=== PATIENT | female | born 1985 | race Hispanic/Latino ===

== ENCOUNTER 2024-05-17 20:43 | Observation (INO) | payer SELFPAY ==
[~2024-05-17 20:43] MED LIST: Iopamidol-370 76% 500 ML MDV (1 ML CHARGE) ONE
[2024-05-17 21:53] LABS: #Basophils 0.03 10x3/uL (0.0-0.2); %Basophils 0.4 % (0.0-1.0); %Eosinophils 0.7 % (0.0-10.0); %Lymphocytes 16.2 % (21.0-51.0); %Monocytes 9.1 % (0.0-10.0); Hematocrit 30.4 % (36.0-47.0); Hemoglobin 9.9 g/dL (12.0-16.0); Mean Corpuscular HGB CONC 32.6 g/dL (32.0-36.0); Mean Corpuscular Hemoglobin 27.7 pg (27.0-31.0); Mean Corpuscular Volume 85.2 fL (78.0-98.0); Platelet Count 300 10x3/uL (130-400); RBC Distribution Width 14.2 % (11.5-14.5); Red Blood Cell (RBC) Count 3.57 mill/uL (4.20-5.40)
[2024-05-17 22:07] LABS: INR-International Normal Ratio 1.2; PTT 31.5 sec (22.9-36.1); Prothrombin Time 14.9 sec (12.0-14.7)
[2024-05-17 22:12] LABS: Troponin I Less than 0.010 ng/mL (< 0.028)
[2024-05-17 22:14] LABS: ALT (SGPT) 9 U/L (8-55); AST (SGOT) 16 U/L (5-34); Albumin 3.6 g/dL (3.5-5.0); Alkaline Phosphatase 54 U/L (40-110); Anion Gap 21 mmol/L (10-20); BUN (Urea Nitrogen) 6 mg/dL (7.0-18.7); Bilirubin, Total 0.4 mg/dL (0.2-1.2); Calc. Creatinine Clearance 0 mL/min (70-130); Calcium 8.8 mg/dL (7.8-10.44); Carbon Dioxide 16 mmol/L (22-29); Chloride 101 mmol/L (98-107); Estimated GFR 119; Globulin 3.9 g/dL (2.4-3.5); Glucose 53 mg/dL (70-105); Potassium 2.5 mmol/L (3.5-5.1); Protein, Total 7.5 g/dL (6.0-8.3); Sodium 135 mmol/L (136-145)
[2024-05-17] MEDS ORDERED: Dextrose 50% Abboject 50 ML SYRINGE ONE (22:16)
[2024-05-17 22:18] LABS: Bilirubin Negative (Negative); Blood, Urine 1+ (Negative); CAUTI Indications for Culture Pelvic or flank pain; Clarity Clear (Clear); Glucose, Urine (Dipstick) Normal (Negative); Ketone, Urine 10 mg/dL (Negative); Leukocyte 25 Leu/uL (Negative); Nitrite Negative (Negative); Protein, Urine (Dipstick) Negative (Neg-Trace); RBC/HPF 0-3 HPF (0-3); Specific Gravity, Urine 1.011 (1.002-1.036); Squamous Epithelial 0-3 HPF (0-3); Urobilinogen Normal mg/dL (Less than 2); WBC/HPF 0-3 HPF (0-3); pH, Urine 5.5 (5.0-9.0)
[2024-05-17 22:21] LABS: Bacteria/HPF 1+ HPF (None Seen)
[2024-05-17 22:22] LABS: Urine Culture Reflex No No
[2024-05-17 22:33] LABS: Magnesium 1.8 mg/dL (1.6-2.6)
[2024-05-17] MEDS ORDERED: Potassium Chloride 20 MEQ TAB ONE (22:48)
[2024-05-17] MEDS ORDERED: Cefepime 2 GM VIAL ONE (22:49)
[2024-05-17] MEDS ORDERED: Sodium Chloride 0.9% 100 ML ONE (22:49)
[2024-05-17] MEDS ORDERED: Potassium Chloride 20 MEQ (100 mL) BAG ONE (23:07)
[2024-05-17 23:22] LABS: Actual Bicarbonate (HCO3v) 19.4 mEq/L (22-28); Base Excess -4.5 mEq/L (-2.0 to +3.0); Calcium, Ionized (venous) 1.08 mmol/L (1.16-1.32); Chloride (VBG) 104 mmol/L (98-106); Hematocrit-VBG 34 % (36.0-47.0); Hemoglobin (Hb) 11.6 g/dL (11.7-15.5); Potassium (VBG) 2.76 mmol/L (3.70-5.30); Sodium 138 mmol/L (133-146)
[2024-05-17 23:51] LABS: BHCG - Serum Negative (NEGATIVE); Pregs Control Background? CLEAR/WHITE (CLR/WHITE); Pregs Control Bar Appear? YES (CONTROL BAR)
[2024-05-18 00:01] LABS: SARS-CoV-2 E Target Negative; SARS-CoV-2 N2 Target Negative; SARS-CoV-2 NAA Rapid Test Not Detected (NotDetected); SARS-CoV-2 RdRP gene Negative
[2024-05-18] MEDS ORDERED: Magnesium 2 GM/50 ML BAG (IN WATER) ONE (01:15)
[2024-05-18] MEDS ORDERED: Vancomycin 1 GM/200 ML (FROZEN) BAG ONE (01:17)
[2024-05-18 01:47] LABS: Lactic Acid 1.8 mmol/L (0.5-2.2)
[2024-05-18] MEDS ORDERED: Ondansetron PF 4 MG/2 ML Vial IVP PRN (02:05)
[2024-05-18] MEDS ORDERED: Acetaminophen 325 MG TAB PO PRN (02:05)
[2024-05-18] MEDS ORDERED: traMADol HCl 50 MG TAB PO PRN (02:05)
[2024-05-18] MEDS ORDERED: Lorazepam 2 MG/ML VIAL SLOW IVP PRN (02:11)
[2024-05-18] MEDS ORDERED: Electrolyte Replacement Protocol 1 EACH FS PRN (02:14)
[2024-05-18] MEDS ORDERED: Dextrose 5%-Lactated Ringers 1,000 ML IV SCH (02:15)
[2024-05-18 03:08] LABS: Amphetamine Not Detected (NotDetected); Barbiturates Screen Not Detected (NotDetected); Benzodiazepine Screen Not Detected (NotDetected); Cocaine Metabolite Screen Detected (NotDetected); Methadone Not Detected (NotDetected); Methamphetamine Not Detected (NotDetected); Opiate Screen Not Detected (NotDetected); Oxycodone Screen Not Detected (NotDetected); Phencyclidine (PCP) Not Detected (NotDetected); THC/Cannabinoid Screen Not Detected (NotDetected); Tricyclic Screen Not Detected (NotDetected)
[2024-05-18] MEDS: Potassium Chloride 20 MEQ TAB PO SCH (04:21)
[2024-05-18] MEDS: Sodium Bicarbonate 50 MEQ in Sodium Chloride 0.45% 1,000 ML IV SCH (04:27)
[2024-05-18 05:03] VITALS: BMI 23.0
[2024-05-18 05:03] LABS: #Basophils 0.03 10x3/uL (0.0-0.2); %Basophils 0.3 % (0.0-1.0); %Eosinophils 1.4 % (0.0-10.0); %Lymphocytes 25.5 % (21.0-51.0); %Monocytes 7.6 % (0.0-10.0); %Neutrophils 64.8 % (42.0-75.0); Hematocrit 31.4 % (36.0-47.0); Mean Corpuscular HGB CONC 31.8 g/dL (32.0-36.0); Mean Corpuscular Hemoglobin 27.3 pg (27.0-31.0); Mean Corpuscular Volume 85.8 fL (78.0-98.0); Mean Platelet Volume 9.6 fL (7.4-10.4); Platelet Count 327 10x3/uL (130-400); RBC Distribution Width 14.6 % (11.5-14.5); Red Blood Cell (RBC) Count 3.66 mill/uL (4.20-5.40)
[2024-05-18 05:22] LABS: Troponin I Less than 0.010 ng/mL (< 0.028)
[2024-05-18 08:05] LABS: Troponin I Less than 0.010 ng/mL (< 0.028)
[2024-05-18] MEDS: Folic Acid 1 MG TAB PO SCH (08:12)
[2024-05-18] MEDS: Multivit, Therapeutic 1 TAB PO SCH (08:12)
[2024-05-18] MEDS: Thiamine 100 MG TAB PO SCH (08:12)
[2024-05-18] MEDS: Lactated Ringer's 1,000 ML IV SCH (08:12)
[2024-05-18 08:29] LABS: Anion Gap 10 mmol/L (10-20); BUN (Urea Nitrogen) Less than 4 mg/dL (7.0-18.7); Calc. Creatinine Clearance 149 mL/min (70-130); Calcium 7.7 mg/dL (7.8-10.44); Carbon Dioxide 20 mmol/L (22-29); Chloride 110 mmol/L (98-107); Estimated GFR 124; Glucose 95 mg/dL (70-105); Potassium 4.1 mmol/L (3.5-5.1); Sodium 136 mmol/L (136-145)
[2024-05-18 08:29] LABS: Anion Gap 11 mmol/L (10-20); BUN (Urea Nitrogen) Less than 4 mg/dL (7.0-18.7); Calc. Creatinine Clearance 146 mL/min (70-130); Calcium 7.9 mg/dL (7.8-10.44); Carbon Dioxide 19 mmol/L (22-29); Chloride 110 mmol/L (98-107); Estimated GFR 123; Glucose 93 mg/dL (70-105); Potassium 4.3 mmol/L (3.5-5.1); Sodium 136 mmol/L (136-145)
[2024-05-18 15:21] VITALS: BP 122/77; TEMP 97.3
[2024-05-18] MEDS ORDERED: Atorvastatin Calcium 40 MG TAB PO SCH (21:00)
[2024-05-18] MEDS ORDERED: Mirtazapine 15 MG TAB PO SCH (21:00)
== END 2024-05-18 17:36 | disposition home or self-care (01) ==
LOC: ERS 20:43 → 2NO 05-18 02:06
PROVIDERS: ADMIT Internal Medicine; ATTEND Family Medicine
PROC: B246ZZZ Ultrasonography of Right and Left Heart (ICD-10-PCS; principal; 2024-05-18)
DX: R55 Syncope and collapse (principal); E86.0 Dehydration; F10.10 Alcohol abuse, uncomplicated; E87.20 Acidosis, unspecified; E87.6 Hypokalemia; E16.2 Hypoglycemia, unspecified; I62.9 Nontraumatic intracranial hemorrhage, unspecified; F14.10 Cocaine abuse, uncomplicated; Z91.030 Bee allergy status; Z91.038 Other insect allergy status; Z91.018 Allergy to other foods
CPT/HCPCS: 36415; 36416; 71045; 71275; 74177; 80048; 80053; 80306; 81001; 82805; 83605; 83735; 84484; 84703; 85025; 85610; 85730; 87040; 93005; 93306; 96374; 96375; G0378; J0692; J3370-JW; J3475; J3480; J7120; J7999; Q9967; U0002